=== PATIENT | male | born 1990 | race Caucasian/White ===

== ENCOUNTER 2017-11-22 09:19 | Emergency (ER) | payer MEDICAID, OTHER ==
[2017-11-22] MEDS ORDERED: ROCEPHIN 1 Gm-D5w 50 ml Bag** 1 G/50 ML IVPB IV STA (09:36)
[2017-11-22] MEDS ORDERED: TORAdol 30 mg Injection IV ONE (09:36)
[2017-11-22] MEDS ORDERED: TORAdol 30 mg Injection ONE (09:53)
[2017-11-22] MEDS ORDERED: ROCEPHIN 1 Gm-D5w 50 ml Bag** 1 G/50 ML IVPB IV ONE (09:53)
--- NOTE | 2017-11-22 10:09 | ERPHSYRPT ---
- History of Present Illness Time Seen by Provider: 11/22/17 09:28 Source: patient Exam Limitations: no limitations Patient Subjective Stated Complaint: pt reports wisdom tooth extraction of the upper left wisdom tooth on 11/11/17. reports difficulty opening mouth, pain and swelling to the left side. reports left ear pain. states he saw his dentist approx one week after extraction with the same complaints. Triage Nursing Assessment: pt is aox3, pt pupils perrl, resps easy and non labored, lung sounds are clear throughout, radial pulses are strong and equal, pt skin is pink warm dry, swelling noted to the left jaw and face. pain with manipulation of the jaw. Physician History: patient with pain and swelling left mouth and jaw post extraction; getting worse ; no difficulty swalllowing but difficulty opening mouth- pain left TMJ; followed up recheck with DDS and was told would call back for referral- never called; now increased pain and swelling left; no trouble breathing; no fever Timing/Duration: today (worse), week(s) (2 initially saw DDS and recheck a week lated), constant, gradual onset, worse Severity: severe Modifying Factors: Improves With: medication Associated Symptoms: nausea Allergies/Adverse Reactions: No Known Drug Allergies Allergy (Unverified 11/22/17 09:40) Hx Tetanus, Diphtheria Vaccination/Date Given: Yes Hx Influenza Vaccination/Date Given: No Hx Pneumococcal Vaccination/Date Given: No Immunizations Up to Date: Yes - Review of Systems Constitutional: No Symptoms Eyes: No Symptoms Ears, Nose, & Throat: Ear Pain (left), Mouth Pain (left), Mouth Swelling (left) , Other (cant open mouth pain left TMJ), No Ear Discharge, No Tinnitus, No Nose Pain, No Sinus Drainage, No Epistaxis, No Throat Swelling, No Hoarse Respiratory: No Cough, No Dyspnea, No Wheezing Cardiac: No Chest Pain, No Palpitations, No Syncope Abdominal/Gastrointestinal: Nausea, No Abdominal Pain, No Vomiting, No Diarrhea , No Constipation Genitourinary Symptoms: No Symptoms Musculoskeletal: No Symptoms Skin: No Symptoms Neurological: No Symptoms Psychological: No Symptoms Endocrine: No Symptoms Hematologic/Lymphatic: No Symptoms Immunological/Allergic: No Symptoms - Past Medical History Pertinent Past Medical History: Yes Cardiac History: Other Other Medical History: heart murmur dx at . premature - Past Surgical History Past Surgical History: Yes - Social History Smoking Status: Current every day smoker Exposure to second hand smoke: No Alcohol Use: None Drug Use: none Patient Lives Alone: No Significant Family History: no pertinent family hx - Female History Hx Now: No - Nursing Vital Signs Nursing Vital Signs: Initial Vital Signs Temperature 99.9 F 11/22/17 09:26 Pulse Rate 112 H 11/22/17 09:26 Respiratory Rate 18 11/22/17 09:26 Blood Pressure 121/83 11/22/17 09:26 O2 Sat by Pulse Oximetry 98 11/22/17 09:26 Pain Scale Pain Intensity 7 - Physical Exam General Appearance: moderate distress, alert Eye Exam: PERRL/EOMI, eyes nml inspection, No photophobia Ears, Nose, Throat Exam: TMs normal, moist mucous membranes, other (can only open mouth 1-2 mm; swelling left side; tendeer left lower jaw; no submental swelling or tenderness) Neck Exam: normal inspection, non-tender, supple, full range of motion, lymphadenopathy (left ant cervical), No meningismus, No JVD, No subcutaneous emphysema Respiratory Exam: normal breath sounds, lungs clear, airway intact, No chest tenderness, No respiratory distress Cardiovascular Exam: regular rate/rhythm, normal heart sounds, normal peripheral pulses, tachycardia (112), capillary refill <2 sec, No murmur Gastrointestinal/Abdomen Exam: soft, normal bowel sounds, No tenderness, No guarding, No rebound, No organomegaly Rectal Exam: deferred Back Exam: normal inspection, normal range of motion, No CVA tenderness, No rash Extremity Exam: normal inspection, normal range of motion, No ashley's sign, No pedal edema Neurologic Exam: alert, oriented x 3, cooperative, watch crystal cutter II-XII nml as tested, normal mood/affect, nml cerebellar function, nml station & gait, sensation nml Skin Exam: normal color, warm, dry, No rash, No petechiae Lymphatic Exam: adenopathy (ant cervical left) SpO2 Interpretation: normal SpO2: 98 Oxygen Delivery: Room Air - Course Nursing assessment & vital signs reviewed: Yes - CT Exams Maxillofacial Bones CT Interpretation: Discussed w/radiologist, Tele-radiologist Report, Other (STS suspect early Moustapha angina) Ordered Tests: Active Orders 24 hr Category Date Time Status IV Insertion STAT Care 11/22/17 09:34 Active Re-Check Vital Signs STAT Care 11/22/17 09:34 Active FACIAL BONES WO CONTRAST [CT] Stat Exams 11/22/17 09:34 Taken BMP Stat Lab 11/22/17 10:05 Completed CBC W DIFF Stat Lab 11/22/17 10:00 Completed Medication Summary Discontinued Medications Generic Name Dose Route Start Last Admin Trade Name Sheron PRN Reason Stop Dose Admin Ceftriaxone Sodium/Dextrose 1 g in 50 mls @ 100 mls/hr 11/22/17 09:36 10:20 Rocephin 1 Gm-D5w 50 Ml Bag IV 11/22/17 10:05 100 mls/hr STAT STA Administration Ceftriaxone Sodium/Dextrose Confirm 11/22/17 09:53 Rocephin 1 Gm-D5w 50 Ml Bag Administered 11/22/17 09:54 Dose 1 g in 50 mls @ ud IV .STK-MED ONE Sodium Chloride Confirm 11/22/17 12:04 Sodium Chloride 0.9% 1000 Ml Administered 11/22/17 12:05 Dose 1,000 mls @ ud .ROUTE .STK-MED ONE Sodium Chloride 250 mls @ 250 mls/hr 11/22/17 12:15 11/22/17 12:12 Sodium Chloride 0.9% 250 Ml IV 11/22/17 13:14 250 mls/hr .Q1H ERIN Administration Ketorolac Tromethamine 30 mg 11/22/17 09:36 11/22/17 10:20 Toradol 30 Mg Injection IV 11/22/17 09:37 30 mg STAT ONE Administration Ketorolac Tromethamine Confirm 11/22/17 09:53 Toradol 30 Mg Injection Administered 11/22/17 09:54 Dose 30 mg .ROUTE .STK-MED ONE Lab/Rad Data: Laboratory Result Diagrams 11/22/17 10:00 11/22/17 10:05 Laboratory Results 11/22/17 11/22/17 Range/Units 10:05 10:00 WBC 19.0 H (4.0-10.5) K/mm3 RBC 4.33 (4.1-5.6) M/mm3 Hgb 14.0 (12.5-18.0) gm/dl Hct 40.6 L (42-50) % MCV 93.8 (78-100) fl MCH 32.3 H (26-32) pg MCHC 34.5 (32-36) g/dl RDW 11.9 (11.5-14.0) % Plt Count 328 (150-450) K/mm3 MPV 9.8 H (6-9.5) fl Gran % 78.5 H (36.0-66.0) % Eos # (Auto) 0.04 (0-0.5) Absolute Lymphs (auto) 2.25 (1.0-4.6) Absolute Monos (auto) 1.76 H (0.0-1.3) Lymphocytes % 11.9 L (24.0-44.0) % Monocytes % 9.3 (0.0-12.0) % Eosinophils % 0.2 (0.00-5.0) % Basophils % 0.1 (0.0-0.4) % Absolute Granulocytes 14.90 H (1.4-6.9) Basophils # 0.02 (0-0.4) Sodium 141 (137-145) mmol/L Potassium 3.9 (3.5-5.1) mmol/L Chloride 102 (98-107) mmol/L Carbon Dioxide 28 (22-30) mmol/L Anion Gap 15.6 H (5-15) MEQ/L BUN 7 L (9-20) mg/dL Creatinine 0.62 L (0.66-1.25) mg/dL Estimated GFR > 60.0 ML/MIN Glucose 102 (74-106) mg/dL Calcium 9.6 (8.4-10.2) mg/dL Slides for Path Review YES reviewed - Progress Progress: re-examined (after meds and ct and multiple times) Progress Note: 11/22/17 10:10 IV started; fluids and meds given; lab and CT pending; will recheck 11/22/17 11:50 continue to monitor and recheck; labs show suspect infect; IV ATBs given; rechecked muultipel times; air way remain patent and intact; no change in exam; no chanmge in voice CT shows significant STS and suspect early Ludwigs angina; Dr Abreu, ED physician at [facility] consulted and accepted patient for transfer. [facility] transfer requested; Patient infomred and rechecked and no change Discussed with .: Other (Dr Abreu, [facility] ED accepted for transfer) Will see patient in: office (transfer to [facility] ER) Counseled pt/family regarding: lab results, diagnosis, need for follow-up, rad results - Departure Time of Disposition: 12:40 Departure Disposition: Transfer (to [facility] ED Dr Abreu accepted) Clinical Impression: Moustapha's angina syndrome Condition: Fair Critical Care Time: Yes Critical Care Time(excluding separately billable procedures): 30-74 minutes Referrals: JEROME FATIMA [Primary Care Provider] -
[2017-11-22 10:26] LABS: BASOPHIL % 0.1 % (0.0-0.4); Basophil (Absolute #) 0.02 (0-0.4); Eosinophil % 0.2 % (0.00-5.0); Eosinophil (Absolute #) 0.04 (0-0.5); Granulocytes % 78.5 % (36.0-66.0); Hematocrit 40.6 % (42-50); Lymphocyte (Absolute #) 2.25 (1.0-4.6); Lymphocytes % 11.9 % (24.0-44.0); Mean Cell Volume 93.8 fl (78-100); Mean Corpuscular Hemoglobin 32.3 pg (26-32); Mean Corpuscular Hgb Concent. 34.5 g/dl (32-36); Mean Platelet Volume 9.8 fl (6-9.5); Monocyte (Absolute #) 1.76 (0.0-1.3); Monocytes % 9.3 % (0.0-12.0); Platelet Count 328 K/mm3 (150-450); Red Blood Count 4.33 M/mm3 (4.1-5.6); Red Cell Distribution Width 11.9 % (11.5-14.0)
[2017-11-22 10:49] LABS: Slide Review 1 YES
[2017-11-22 10:51] LABS: ANION GAP 15.6 MEQ/L (5-15); BLOOD UREA NITROGEN 7 mg/dL (9-20); CHLORIDE 102 mmol/L (98-107); Calcium 9.6 mg/dL (8.4-10.2); Carbon Dioxide 28 mmol/L (22-30); Creatinine 1 0.62 mg/dL (0.66-1.25); Glucose 102 mg/dL (74-106); Potassium 3.9 mmol/L (3.5-5.1); SODIUM 141 mmol/L (137-145)
[2017-11-22 12:04] VITALS: BP 108/71; PULSE 101
[2017-11-22] MEDS ORDERED: Sodium Chloride 0.9% 1000 ML 1,000 ML ONE (12:04)
[2017-11-22] MEDS ORDERED: Sodium Chloride 0.9% 250 ML 250 ML IV SCH (12:15)
[2017-11-22 13:01] VITALS: O2SAT 98
--- NOTE | 2017-11-22 21:02 | XRAY ---
Indication: Left facial pain and swelling following tooth extraction November 11, 2017. Multiple contiguous axial images obtained through the facial bones. Sagittal and coronal reformatted images obtained. Comparison: None There has been left mandibular posterior tooth extraction. Multiple bilateral dental amalgams produces beam artifact. Floor of the left mouth appear swollen/edematous with multiple reactive submandibular lymph nodes, largest 9 x 15 mm. Left palatine tonsil is also enlarged. No acute fracture, suspicious bony lesions, or osseous destructive process. Remaining visualized noncontrasted soft tissues including orbits and base of the brain unremarkable. Paranasal sinuses are clear. Impression: Soft tissue swelling of the floor of the left mouth may be related to recent dental extraction. There are also multiple reactive left submandibular lymph nodes. Underlying infectious process or for that matter abscess not completely excluded on this noncontrast exam. Correlate clinically. Comment: Preliminary interpretation was made by [facility]. No discrepancy. CTDI 59.47
== END 2017-11-22 12:44 | disposition short-term general hospital (02) ==
LOC: ED 09:19
DX: K12.2 Cellulitis and abscess of mouth (principal); Z98.818 Other dental procedure status
CPT/HCPCS: 36000; 36415; 70486; 80048; 85025; 96360; 96361; 96365; 96374; 99285; J0696; J1885

== ENCOUNTER 2021-05-29 16:50 | Emergency (ER) | payer OTHER ==
[2021-05-29 17:25] VITALS: BP 134/83; PULSE 96; O2SAT 99
--- NOTE | 2021-05-29 17:36 | ERPHSYRPT ---
- History of Present Illness Time Seen by Provider: 05/29/21 17:16 Source: patient Exam Limitations: no limitations Patient Subjective Stated Complaint: pt here for a tooth ache to lower right jaw. Triage Nursing Assessment: pt alert, walked in, resp easy, skin w/d/p, face mask in place, has multi teeth with caries Physician History: 31 years old male with history of dental caries presented in the ER with chief complaint of right lower wisdom tooth pain gradual onset for last 2 weeks with progressive worsening, aggravated with eating on right side, hot and cold touch with some swelling of gingiva. No fever or chills reported. Does have appointment with dentist in a week. Timing/Duration: gradual onset Severity: moderate, severe ENT Location: dental Prearrival Treatment: over the counter meds Associated Symptoms: jaw pain, tooth pain Allergies/Adverse Reactions: No Known Drug Allergies Allergy (Verified 05/29/21 17:26) Hx Tetanus, Diphtheria Vaccination/Date Given: Yes Hx Influenza Vaccination/Date Given: No Hx Pneumococcal Vaccination/Date Given: No Immunizations Up to Date: Yes Travel Risk - International Travel Have you traveled outside of the country in past 3 weeks: No - Coronavirus Screening Are you exhibiting any of the following symptoms?: No Close contact with a COVID-19 positive Pt in past 14-21 Days: No - Vaccine Status Have you recieved a Covid-19 vaccination: Yes Unarmed Security Guard: Moderna - Vaccination Dates Date of 2cond Vaccination (if applicable): ? - Review of Systems Constitutional: No Symptoms Eyes: No Symptoms Ears, Nose, & Throat: Mouth Pain Respiratory: No Symptoms Cardiac: No Symptoms Musculoskeletal: No Symptoms Skin: No Symptoms Neurological: No Symptoms Endocrine: No Symptoms Hematologic/Lymphatic: No Symptoms - Past Medical History Pertinent Past Medical History: Yes Cardiac History: Other Other Medical History: heart mummer - Past Surgical History Past Surgical History: Yes - Social History Smoking Status: Never smoker Exposure to second hand smoke: No Alcohol Use: None Drug Use: none Patient Lives Alone: No Significant Family History: no pertinent family hx - Nursing Vital Signs Nursing Vital Signs: Initial Vital Signs Temperature 97.3 F 05/29/21 17:21 Pulse Rate 96 H 05/29/21 17:21 Respiratory Rate 18 05/29/21 17:21 Blood Pressure 134/83 05/29/21 17:21 O2 Sat by Pulse Oximetry 99 05/29/21 17:21 Pain Scale Pain Intensity 7 - Physical Exam General Appearance: no apparent distress, alert Eye Exam: bilateral eye: normal inspection, PERRL, EOMI Ear Exam: bilateral ear: auricle normal, canal normal, TM normal Nasal Exam: normal inspection Throat Exam: normal, pharynx normal, dental tenderness (Multiple dental caries with old filling partially out. Mild periodontal disease. Gingival swelling especially in the right molar area.) Neck Exam: normal inspection, non-tender, supple, full range of motion Cardiovascular/Respiratory Exam: normal breath sounds, regular rate/rhythm Neurologic Exam: alert, oriented x 3, cooperative, carton stapler II-XII nml as tested, n ormal mood/affect Skin Exam: normal color SpO2 Interpretation: normal SpO2: 99 O2 Delivery: Room Air - Progress Progress: unchanged Progress Note: 05/29/21 17:34 I offered pain medications which he refused. Patient is given ibuprofen and Augmentin to go home and outpatient follow-up as scheduled. Counseled pt/family regarding: diagnosis, need for follow-up - Departure Departure Disposition: Home Clinical Impression: Dental infection Condition: Stable Critical Care Time: No Instructions: Tooth Decay, Adult (DC), Tooth Abscess (DC) Additional Instructions: Keep appointment with your dentist as scheduled. Take Tylenol/ibuprofen as needed. Return to ER for increasing swelling pain/fever chills etc. Prescriptions: Ibuprofen 600 mg PO Q6HPRN PRN 10 Days #20 tablet PRN Reason: Pain Amoxicillin/Potassium Clav [Augmentin 875-125 Tablet] 875 mg PO BID 7 Days #14 tablet
== END 2021-05-29 17:47 | disposition home or self-care (01) ==
LOC: ED 16:50
DX: K04.7 Periapical abscess without sinus (principal)
CPT/HCPCS: 99283